=== PATIENT | male | born 1950 | race Caucasian/White ===

== ENCOUNTER 2022-09-11 06:33 | Day surgery (SDC) | payer MEDICARE, BC ==
[~2022-09-11] VITALS: Ht 172.7 cm; Wt 91.5 kg
[2022-09-11] MEDS ORDERED: AMLO-513 PO (07:09)
[2022-09-11] MEDS ORDERED: DULO60CA65 PO (07:09)
[2022-09-11] MEDS ORDERED: HYDR25TA4 PO (07:09)
[2022-09-11] MEDS ORDERED: LORA-268 PO (07:11)
[2022-09-11] MEDS ORDERED: CHOL500050 PO (07:11)
[2022-09-11 07:20] VITALS: BP 133/67
[2022-09-11] MEDS ORDERED: LIDOcaine 1% 30ml preserv. free vial SQ STA (07:32)
[2022-09-11 09:07] VITALS: BP 139/76
[2022-09-11 09:22] VITALS: BP 129/72
[2022-09-11 09:36] VITALS: BP 134/79
[2022-09-11 09:37] VITALS: BP 134/77
== END 2022-09-11 09:56 | disposition home or self-care (01) ==
LOC: SSTAY O 06:33
PROVIDERS: ATTEND Radiology Vascular & Interventional Radiology
DX: R59.0 Localized enlarged lymph nodes (principal); C77.4 Secondary and unspecified malignant neoplasm of inguinal and lower limb lymph nodes; C43.71 Malignant melanoma of right lower limb, including hip; Z88.1 Allergy status to other antibiotic agents; Z79.899 Other long term (current) drug therapy
CPT/HCPCS: 38505; 76942; 88184; 88185; 88305; 88341; 88342